=== PATIENT | female | born 1970 | race Caucasian/White ===

== ENCOUNTER 2024-01-25 19:20 | Emergency (ER) | payer OTHER ==
[~2024-01-25] VITALS: Ht 162.6 cm; Wt 90.7 kg
[2024-01-25 19:30] VITALS: BP 116/59; PULSE 102; RESP 17; TEMP 97.8; O2SAT 96
[2024-01-25 19:44] VITALS: BP 116/59; PULSE 102; RESP 17; TEMP 97.8
[2024-01-25 19:47] VITALS: O2SAT 96
[2024-01-25] MEDS ORDERED: BACI-418 TP (20:00)
[2024-01-25] MEDS ORDERED: AMOX-1230 PO (20:00)
[2024-01-25] MEDS: BACITRACIN OINT 500 UNITS/GM PKT TP ONE (20:05)
== END 2024-01-25 20:13 | disposition home or self-care (01) ==
LOC: MED 19:20
DX: S51.811A Laceration without foreign body of right forearm, initial encounter (principal); Z79.2 Long term (current) use of antibiotics; Z79.899 Other long term (current) drug therapy; Z90.710 Acquired absence of both cervix and uterus; W54.0XXA Bitten by dog, initial encounter; Y93.89 Activity, other specified; Y92.89 Other specified places as the place of occurrence of the external cause; Y99.8 Other external cause status
CPT/HCPCS: 99283